=== PATIENT | male | born 1995 | race Asian ===

== ENCOUNTER 2017-04-15 23:57 | Emergency (ER) | payer OTHER ==
[~2017-04-15] VITALS: Ht 170.2 cm; Wt 53.3 kg
[~2017-04-15 23:57] MED LIST: DOXY1TAB6 PO; [UNRECOGNIZED DRUG - REMARK] PO
[2017-04-16 00:12] VITALS: TEMP 36.8; Ht 170.2 cm; Wt 53.3 kg
--- NOTE | 2017-04-16 00:34 | EMERGENCY ROOM VISIT NOTE ---
History Report prepared by Raudel: Alexys Aaron Under the Supervision of: Dr. Maribel Paulino D.O. First contact with patient: 00:18 Chief Complaint: TESTICULAR PAIN Stated Complaint: TESTICULAR PAIN History of Present Illness The patient is a 21 year old male who presents to the Emergency Room with complaints of worsening right side testicular pain for the past 7 days. Patient states he has associated pain of leg cramping when his testicular pain acts up. Patient denies any painful urination, abdominal pain, urinary discharge, changes in bowel movements, leg cramping/swelling, or herniating pain. Patient denies any unprotected sex. Pertinent past medical history of epididymitis. Patient adds that he has a history of left testicular pain. Patient states he has previously taken doxycycline for his testicular pain. Source of History: patient Onset: 7 days ago Position: other (Right testicle) Timing: worsening Associated Symptoms: No urinary symptoms Note: Patient has leg cramping. Patient denies urinary discharge or change in bowel movements. Review of Systems See HPI for pertinent positives & negatives. A total of 10 systems reviewed and were otherwise negative. Past Medical & Surgical Medical Problems: (1) Epididymitis (2) No pertinent past medical history Family History Patient reports no known family medical history. Social History Smoking Status: Current Every Day Smoker Drug Use: none Occupation Status: [employer] student Current/Historical Medications No Active Prescriptions or Reported Meds Allergies Coded Allergies: No Known Allergies (Unverified , 04/16/17) Physical Exam Vital Signs Date Time Temp Pulse Resp B/P (MAP) Pulse Ox O2 Delivery O2 Flow Rate FiO2 04/16/17 03:45 63 15 100/75 98 04/16/17 01:45 63 15 110/63 97 Room Air 04/16/17 00:12 36.8 98 16 137/91 95 Room Air Physical Exam Heart: Regular rate and rhythm. There is a normal S1 and S2 with no murmurs, clicks, or gallops appreciated. Lungs: Clear to auscultation bilaterally with no wheezes, rales, or rhonchi. Abdomen: Soft, completely nontender, nondistended, with good bowel sounds. There are no palpable pulsatile masses or hepatosplenomegaly. There is no guarding, rigidity, or rebound noted. Genitalia: tenderness to right testicle and there is a positive cremasteric reflex on the right Extremities: No evidence of cyanosis, clubbing, or edema. There are easily palpable peripheral pulses. Skin: warm and dry with good turgor and no rashes. Medical Decision & Procedures ER Provider Diagnostic Interpretation: Radiology results as stated below per my review and the radiologist's interpretation: US Scrotal Complex, hypoechoic in vascular 2.3cm mass lesion in the right testicle. Must consider neoplasm. No intratesticular torsion. Bilateral microlithiasis. Right epididymal cyst. Radiologist: Windy Cason M.D. Portable Chest X-Ray Unremarkable Laboratory Results Test 04/16/17 00:40 Urine Color YELLOW Urine Appearance CLEAR (CLEAR) Urine pH 7.0 (4.5-7.5) Urine Specific Moore 1.007 (1.000-1.030) Urine Protein NEG (NEG) Urine Glucose (UA) NEG (NEG) Urine Ketones NEG (NEG) Urine Occult Blood NEG (NEG) Urine Nitrite NEG (NEG) Urine Bilirubin NEG (NEG) Urine Urobilinogen NEG (NEG) Urine Leukocyte Esterase NEG (NEG) Laboratory results per my review. Medications Administered Medications (Trade) Dose Ordered Sig/Marisel Route Start Time Stop Time Status Last Admin Dose Admin Ketorolac Tromethamine (Toradol Inj) 60 mg NOW STAT IM 04/16/17 00:35 04/16/17 00:37 DC 04/16/17 01:01 60 MG Procedure Toradol Inj 60mg IM ED Course 0025: The patient was evaluated in room B7. A complete history and physical examination were performed. Nursing notes and previous electronic medical records were reviewed. He urine specimen was obtained. 0035: Toradol Inj 60mg IM. The patient will go for ultrasound 0300: I reassessed the patient and updated him on his findings. The patient will have a chest x-ray. 0341: Upon reevaluation, the patient is resting comfortably. I discussed findings and results with him. He verbalized agreement of the treatment plan. He was discharged home. Medical Decision The patient is a 21 year old male who presents to the ED with worsening right testicular pain. Differential diagnosis includes Orchitis, epididymitis, and testicular torsion. The patient has had worsening right testicular pain over the past 1 week. He has had a previous episode of epididymitis in the left testicle. Ultrasound shows a mass of the right testicle which is hypervascular. I reviewed these results with the patient. We did a chest x-ray to rule out metastatic disease. This was negative. I discussed the case with Dr. Salazar from urology and he will see the patient in the office. Medication Reconcilliation Current Medication List: was personally reviewed by me Blood Pressure Screening Patient's blood pressure: Normal blood pressure Blood pressure disposition: Did not require urgent referral Consults Time Called: 8:00 Consulting Physician: Jorge Salazar Returned Call: 8:04 Impression Primary Impression: Mass of right testicle Scribe Attestation The scribe's documentation has been prepared under my direction and personally reviewed by me in its entirety. I confirm that the note above accurately reflects all work, treatment, procedures, and medical decision making performed by me. Departure Information Dispostion Home / Self-Care Prescriptions No Active Prescriptions or Reported Meds Referrals No Doctor, Assigned (PCP) Forms HOME CARE DOCUMENTATION FORM, IMPORTANT VISIT INFORMATION, WORK / SCHOOL INSTRUCTIONS Patient Instructions My [facility] Additional Instructions Rest. tylenol or motrin for pain Follow up on Tuesday with Urology - Dr. Salazar
[2017-04-16] MEDS ORDERED: KETOROLAC TROMETHAMINE 60 MG/2 ML VIAL IM STA (00:35)
[2017-04-16 03:45] VITALS: BP 100/75; PULSE 63; O2SAT 98
--- NOTE | 2017-04-16 08:19 | DIAGNOSTIC IMAGING REPORT ---
ULTRASOUND TESTES AND SCROTUM CLINICAL HISTORY: Right testicular pain. COMPARISON STUDY: Scrotal ultrasound dated 05/11/2015. TECHNIQUE: Real-time, grayscale, and color Doppler sonography of the testes and scrotum is performed. Images are reviewed in the transverse and longitudinal planes. FINDINGS: The testes are normal in size and homogeneous in echotexture. The right testis measures 3.2 x 1.9 x 2.5 cm and the left testis measures 4.4 x 2.0 x 2.5 cm. Small microliths are identified in the right testis. There is a lobulated hypoechoic mass lesion identified in the right testis. This measures 2.3 x 1.6 x 2.1 cm and shows internal flow on color imaging. Testicular blood flow is normal and symmetric. Normal Doppler waveforms are identified in both testes. The epididymal heads are normal in appearance. The right epididymal head measures 0.9 cm in length and the left epididymal head measures 1.0 cm in length. There is a 4 mm epididymal head cyst seen on the right. No varicocele or hydrocele is seen. IMPRESSION: 1. There is a 2.3 cm hypoechoic vascular mass lesion identified in the right testis. This should be considered neoplasm until proven otherwise. Follow-up with urology is recommended. 2. No acute sonographic abnormality is identified in the scrotum. 3. The left testis is normal in appearance. Electronically signed by: Carl Lomas M.D. 04/16/2017 8:18 AM Dictated Date/Time: 04/16/2017 8:15 AM
--- NOTE | 2017-04-16 08:41 | DIAGNOSTIC IMAGING REPORT ---
SINGLE VIEW CHEST CLINICAL HISTORY: Testicular mass. FINDINGS: An AP, portable, upright chest radiograph is obtained. No prior studies are available for comparison at the time of dictation. The cardiomediastinal silhouette is unremarkable. There is no radiographic evidence of pulmonary nodule. The lungs and pleural spaces are clear. No pneumothorax is seen. The bony thorax is grossly intact. IMPRESSION: No active disease in the chest. Electronically signed by: Carl Lomas M.D. 04/16/2017 8:39 AM Dictated Date/Time: 04/16/2017 8:39 AM
[2017-04-19] MEDS ORDERED: OXYC7.5T65 PO (17:04)
== END 2017-04-16 03:45 | disposition home or self-care (01) ==
LOC: C.EDB 23:58
DX: D40.11 Neoplasm of uncertain behavior of right testis (principal); Z87.438 Personal history of other diseases of male genital organs; F17.200 Nicotine dependence, unspecified, uncomplicated

== ENCOUNTER → 2017-04-18 | Outpatient (CLI) | payer OTHER ==
[~2017-04-18] MED LIST changes: +OXYC7.5T65 PO
[2017-04-18 18:28] LABS: BASO % 0.2 %; BASO ABS # 0.01 K/uL (0-0.2); EOS % 1.2 %; EOS ABS # 0.07 K/uL (0-0.5); HEMATOCRIT 42.8 % (42-52); HEMOGLOBIN 15.5 g/dL (14.0-18.0); IG# 0.01 K/uL (0.00-0.02); LYMPH % 24.7 %; LYMPH ABS # 1.46 K/uL (1.2-3.4); MEAN CELL VOLUME 85.1 fL (80-100); MEAN CORPUSCULAR HEMOGLOBIN 30.8 pg (25-34); MEAN CORPUSCULAR HGB CONC 36.2 g/dl (32-36); MONO % 5.4 %; MONO ABS # 0.32 K/uL (0.11-0.59); NEUT % 68.3 %; NEUT ABS # 4.03 K/uL (1.4-6.5); PLATELET COUNT 170 K/uL (130-400); RED CELL DISTRIBUTION WIDTH CV 11.9 % (11.5-14.5); RED CELL DISTRIBUTION WIDTH SD 36.4 fL (36.4-46.3)
[2017-04-18 19:11] LABS: ALKALINE PHOSPHATASE 102 U/L (45-117); ALT/SGPT 30 U/L (12-78); AST/SGOT 18 U/L (15-37); BLOOD UREA NITROGEN 20 mg/dl (7-18); CALCIUM 9.1 mg/dl (8.5-10.1); CARBON DIOXIDE 33 mmol/L (21-32); CREATININE 1.04 mg/dl (0.60-1.40); GLUCOSE 103 mg/dl (70-99); POTASSIUM 3.9 mmol/L (3.5-5.1); SODIUM 137 mmol/L (136-145); TOTAL PROTEIN 7.8 gm/dl (6.4-8.2)
== END | disposition home or self-care (01) ==
LOC: C.LAB 18:08
PROVIDERS: ATTEND Urology
DX: N50.9 Disorder of male genital organs, unspecified (principal)

== ENCOUNTER 2017-04-19 12:48 | Day surgery (SDC) | payer OTHER ==
[~2017-04-19] VITALS: Ht 172.7 cm; Wt 51.8 kg
[~2017-04-19 12:48] MED LIST changes: +CEFAZOLIN 2000MG IV PUSH 10 ML IV SCH; -DOXY1TAB6 PO; -OXYC7.5T65 PO; +PATIENT'S HEIGHT AND/OR WEIGHT NEEDED SCH; -[UNRECOGNIZED DRUG - REMARK] PO
[2017-04-19 13:10] VITALS: BP 117/72; PULSE 70; TEMP 36.8; O2SAT 99; Ht 172.7 cm; Wt 51.8 kg
[2017-04-19] MEDS ORDERED: MIDAZOLAM HCL 1 MG/ML 2ML VIAL ONE (14:17)
[2017-04-19] MEDS ORDERED: PROPOFOL IV EMULSION 10 MG/ML 20 ML VIAL IV ONE (14:17)
[2017-04-19] MEDS ORDERED: FENTANYL CITRATE INJ 50 MCG/1 ML 2 ML VIAL ONE ×2 (14:17)
[2017-04-19] MEDS ORDERED: ONDANSETRON INJ 2 MG/ML 2 ML VIAL ONE (14:17)
[2017-04-19] MEDS ORDERED: LIDOCAINE HCL 2% 2 ML VIAL (20MG/ML) ONE (14:17)
--- NOTE | 2017-04-19 15:07 | History & Physical Bridge Note ---
H&P Re-Evaluation Bridge Note: I have examined the patient, reviewed the History & Physical and in the interval since the performance of the History & Physical I have noted the following changes of clinical significance: No changes noted
--- NOTE | 2017-04-19 17:00 | Discharge Instructions ---
Discharge Instructions Date of Service Apr 19, 2017. Admission Reason for Admission: Scrotal Mass Discharge Discharge Diagnosis / Problem: Right Testicular Mass Discharge Goals Goal(s): Decrease discomfort, Improve function Activity Recommendations Activity Limitations: resume your previous activity Lifting Limitations: no more than 10 pounds, gradually increase as tolerated Exercise/Sports Limitations: gradually increase as tolerated May Resume Sexual Activity: after follow-up appointment Shower/Bathe: tomorrow . Instructions / Follow-Up Instructions / Follow-Up Scrotal support as need. Okay to shower tomorrow. Okay to wash 2-3 x daily with warm soapy water. Glue and absorbable sutures in place. Pain medications as needed. Monitor for fevers or chills or other issues. Current Hospital Diet Patient's current hospital diet: Discharge Diet Recommended Diet: Regular Diet Procedures Procedures Performed: Right Orchiectomy, Radical Pending Studies Studies pending at discharge: no Medical Emergencies . Who to Call and When: Medical Emergencies: If at any time you feel your situation is an emergency, please call 911 immediately. . Non-Emergent Contact Non-Emergency issues call your: Primary Care Provider, Urologist . . "Provider Documentation" section prepared by Dudley Galeano,. . VTE Core Measure Inpt VTE Proph given/why not?: SCD's
[2017-04-19] MEDS ORDERED: BUPIVACAINE 0.5 % 5 MG/1 ML MPF 30ML VIAL ONE (17:01)
[2017-04-19] MEDS ORDERED: OXYC7.5T65 PO (17:04)
[2017-04-19] MEDS ORDERED: OXYCODONE/ACETAMINOPHEN 7.5-325 TAB PO PRN (17:15)
[2017-04-19] MEDS ORDERED: EpHEDrine SULFATE 50MG/5ML SYR ONE (17:50)
[2017-04-19] MEDS ORDERED: KETOROLAC TROMETHAMINE 30 MG/ML VIAL ONE (17:50)
[2017-04-19] MEDS ORDERED: DEXAMETHASONE SOD INJ 4 MG/ML VIAL ONE (17:50)
[2017-04-19] MEDS ORDERED: FENTANYL CITRATE INJ 50 MCG/1 ML 2 ML VIAL IV PRN (18:15)
[2017-04-19] MEDS ORDERED: ATROPINE SULFATE 0.1 MG/ML 5ML SYR IV PRN (18:15)
[2017-04-19] MEDS ORDERED: EpHEDrine SULFATE INJ 50 MG/ML AMP IV PRN (18:15)
[2017-04-19] MEDS ORDERED: ONDANSETRON INJ 2 MG/ML 2 ML VIAL IV PRN (18:15)
[2017-04-19] MEDS ORDERED: HYDROmorphone INJ 1 MG/ML SYR IV PRN (18:15)
--- NOTE | 2017-04-19 18:17 | [facility] Post Operative Brief Note ---
Immediate Operative Summary Operative Date Apr 19, 2017. Pre-Operative Diagnosis Right Testicular Mass Post-Operative Diagnosis Same Procedure(s) Performed Right Orchiectomy, Radical Surgeon Froylan Electro Mechanic Surgeon(s) None Estimated Blood Loss Minimal Findings Consistent with Post-Op Diagnosis Specimens Right Radical Testicle and cord Drains None Anesthesia Type General Complication(s) none Disposition Accompanied Pt To Recover: no Disposition: Recovery Room / PACU
[2017-04-19 19:05] VITALS: BP 132/75; PULSE 80; TEMP 36.3; O2SAT 100
--- NOTE | 2017-04-19 19:26 | Anesthesiology Progress Note ---
Anesthesia Post Op Note Date & Time Apr 19, 2017 at 19:25 Vital Signs Pain Intensity: 0 Vital Signs Past 12 Hours Date Time Temp Pulse Resp B/P (MAP) Pulse Ox O2 Delivery O2 Flow Rate FiO2 04/19/17 18:55 36.3 57 14 118/73 100 04/19/17 18:45 52 14 93/54 99 Oxymask 3 04/19/17 18:35 50 12 88/55 99 Oxymask 5 04/19/17 18:26 36.2 51 12 92/52 99 Oxymask 5 04/19/17 13:10 36.8 70 18 117/72 (87) 99 Room Air Notes Mental Status: alert / awake / arousable, participated in evaluation Pt Amnestic to Procedure: Yes Nausea / Vomiting: adequately controlled Pain: adequately controlled Airway Patency, RR, SpO2: stable & adequate BP & HR: stable & adequate Hydration State: stable & adequate Anesthetic Complications: no major complications apparent
--- NOTE | 2017-04-19 20:37 | [facility] Operative Report ---
Operative Report Operative Date Apr 19, 2017. Pre-Operative Diagnosis Right Testicular Mass Post-Operative Diagnosis Same Procedure(s) Performed Right Inguinal Radical Orchiectomy Surgeon Galeano Estimated Blood Loss Minimal Findings Testicular mass on right approx 2 cm. Solid on posterior testicle. Specimens 1. Radical Right Testicle and spermatic cord Anesthesia General Complication(s) None Disposition Recovery Room / PACU Indications Right testicular mass suspicious for malignancy. Description of Procedure Patient was consented and brought back to the operating room. Patient was placed under anesthesia in the supine position. Patient was prepped and draped in the regular sterile fashion. A time out was completed. The right inguinal region was examined and marked. Local anesthetic was injected below the skin. An inguinal incision was made approx 6 cm in length. Electrocautery was used to open the subcutaneous tissues. The inguinal canal was palpated. the fascia was opened and the cord isolated. A drain was used to isolate the cord further for dissection. Dissection of the cord was taken proximal. A high ligation was completed with a alfredo clamp and a 1-0 Silk suture. This was tied a second time. The cord was then clamped and cut. At this point, the testicle was delivered into the field and scrotal attachments freed. The specimen was handed off to be sent for pathologic analysis. The area was irrigated and the all bleeding controlled. The fascia was closed with a running vicryl suture. Subcutaneous tissues were closed with running suture and a monocyrl running 4-0 suture was used to close the skin. The patient was cleaned, aroused from anesthesia, and transferred to the pacu in stable condition having tolerated the procedure well with no complications. I was present and participated in all aspects of the procedure. I attest to the content of the Intraoperative Record and any orders documented therein. Any exceptions are noted below.
== END 2017-04-19 19:48 | disposition home or self-care (01) ==
LOC: C.ACU 12:48
PROVIDERS: ATTEND Urology
DX: N50.9 Disorder of male genital organs, unspecified (principal); F17.200 Nicotine dependence, unspecified, uncomplicated

== ENCOUNTER → 2017-04-25 | Outpatient (CLI) | payer OTHER ==
[~2017-04-25] MED LIST changes: -CEFAZOLIN 2000MG IV PUSH 10 ML IV SCH; +OPTIRAY 320 IV PRN; +OXYC7.5T65 PO; -PATIENT'S HEIGHT AND/OR WEIGHT NEEDED SCH
--- NOTE | 2017-04-25 11:09 | DIAGNOSTIC IMAGING REPORT ---
CT SCAN OF THE ABDOMEN AND PELVIS WITH IV CONTRAST CLINICAL HISTORY: Right testicular mass. COMPARISON STUDY: No priors. TECHNIQUE: Following the IV administration of 94 cc of Optiray 320, CT scan of the abdomen and pelvis is performed from the lung bases to the proximal femora. Images are reviewed in the axial, sagittal, and coronal planes. IV contrast was administered without complication. A dose lowering technique was utilized adhering to the principles of ALARA. CT DOSE: 226.55 mGy.cm FINDINGS: Lung bases: The heart is normal in size and without pericardial effusion. Fat-containing Bochdalek hernias are present at both lung bases. The lung bases are otherwise clear. Liver: The contrast-enhanced liver is normal in size, contour, and attenuation. There is no intrahepatic biliary ductal dilatation. The hepatic veins and portal veins are patent. There is a 1.6 cm low-attenuation lesion in the left hepatic lobe. This demonstrates foci of peripheral discontinuous nodular enhancement and almost certainly represents a hemangioma. Gallbladder: Unremarkable. Spleen: Normal in size and attenuation. Pancreas: Unremarkable. Adrenal glands: Unremarkable. Kidneys: The contrast enhanced kidneys are normal in size and without hydronephrosis. The kidneys enhance symmetrically. Abdominal vasculature: The abdominal aorta is normal in course and caliber. 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 Bowel: The small bowel and colon are normal in course and caliber. The appendix is well-visualized and normal. Peritoneum: There is no intraperitoneal free air or abdominal ascites. There is a small fat-containing umbilical hernia. Lymphadenopathy: None. Pelvic viscera: The bladder, prostate, and seminal vesicles are normal as imaged. Findings suggest right-sided orchiectomy. Skeletal structures: No lytic or blastic lesions are seen. IMPRESSION: 1. There is no evidence of metastatic disease in the abdomen or pelvis. 2. A 1.6 cm incompletely characterized low-attenuation lesion is identified in the left hepatic lobe. This demonstrates foci of peripheral discontinuous nodular enhancement and almost certainly represents a benign hemangioma. MRI of the liver could be considered if definitive characterization is required. Electronically signed by: Carl Lomas M.D. 04/25/2017 11:08 AM Dictated Date/Time: 04/25/2017 11:03 AM
== END | disposition home or self-care (01) ==
LOC: C.CTS 10:43
PROVIDERS: ATTEND Urology
DX: K76.9 Liver disease, unspecified (principal); N50.9 Disorder of male genital organs, unspecified

== ENCOUNTER → 2017-11-14 | Outpatient (CLI) | payer OTHER ==
[~2017-11-14] MED LIST changes: -OXYC7.5T65 PO; +PRED20TA PO
[2017-11-14 17:10] LABS: BASO % 0.2 %; BASO ABS # 0.01 K/uL (0-0.2); EOS % 1.2 %; EOS ABS # 0.05 K/uL (0-0.5); HEMATOCRIT 44.3 % (42-52); IG# 0.01 K/uL (0.00-0.02); LYMPH % 36.4 %; LYMPH ABS # 1.56 K/uL (1.2-3.4); MEAN CELL VOLUME 85.2 fL (80-100); MEAN CORPUSCULAR HEMOGLOBIN 30.8 pg (25-34); MEAN CORPUSCULAR HGB CONC 36.1 g/dl (32-36); MEAN PLATELET VOLUME 10.9 fL (7.4-10.4); MONO % 6.5 %; MONO ABS # 0.28 K/uL (0.11-0.59); NEUT % 55.5 %; NEUT ABS # 2.37 K/uL (1.4-6.5); PLATELET COUNT 170 K/uL (130-400); RED CELL DISTRIBUTION WIDTH SD 37.1 fL (36.4-46.3); WHITE BLOOD COUNT 4.28 K/uL (4.8-10.8)
--- NOTE | 2017-11-14 17:26 | DIAGNOSTIC IMAGING REPORT ---
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 TECHNIQUE: Multidetector CT of the abdomen and pelvis was performed after the administration of intravenous contrast. IV contrast: 115 mL of Optiray 320. A dose lowering technique was used consistent with the principles of ALARA (as low as reasonably achievable). COMPARISON: None. CT DOSE (mGy.cm): The estimated cumulative dose is 226.39 mGy.cm. FINDINGS: Boom Supervisor topogram: Unremarkable. Lung bases: Lungs and pleural spaces clear. Normal heart size. No pericardial or pleural effusion. Liver: Normal morphology. Unchanged 1.5 cm multilobular hypodense lesion in the left hepatic lobe (series 3 image 39), indeterminate and possibly benign hemangioma. Patent hepatic vasculature. Biliary: No intrahepatic or extrahepatic biliary ductal dilatation. Normal gallbladder. Pancreas: Normal. Spleen: Normal. Adrenal glands: Normal. Kidneys and ureters: Normal. No hydronephrosis. Bladder: Normal. Pelvic organs: Prostate and seminal vesicles normal. Bowel: Normal appendix. No bowel obstruction. Peritoneal cavity: No free fluid or intraperitoneal gas. Lymph nodes: No enlarged lymph nodes in the abdomen or pelvis. Vasculature: Aorta and IVC patent and normal in caliber. 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 Abdominal wall: Postsurgical changes in the right inguinal region. Musculoskeletal: Normal. IMPRESSION: 1. No evidence of metastatic disease in the abdomen or pelvis. No lymphadenopathy. 2. Stable postsurgical changes in the right inguinal region. 3. Stable 1.5 cm left hepatic lobe lesion, suspected benign hemangioma. Electronically signed by: Ron Bach M.D. 11/14/2017 5:25 PM Dictated Date/Time: 11/14/2017 5:15 PM
[2017-11-14 18:44] LABS: AST/SGOT 16 U/L (15-37); POTASSIUM 3.9 mmol/L (3.5-5.1); SODIUM 137 mmol/L (136-145)
[2017-11-14 19:09] LABS: ALBUMIN 4.2 gm/dl (3.4-5.0); ALKALINE PHOSPHATASE 116 U/L (45-117); ALT/SGPT 28 U/L (12-78); BLOOD UREA NITROGEN 13 mg/dl (7-18); CALCIUM 9.1 mg/dl (8.5-10.1); CARBON DIOXIDE 28 mmol/L (21-32); GLUCOSE 88 mg/dl (70-99); TOTAL PROTEIN 8.3 gm/dl (6.4-8.2)
== END | disposition home or self-care (01) ==
LOC: C.CTS 16:33
PROVIDERS: ATTEND Urology
DX: C62.90 Malignant neoplasm of unspecified testis, unspecified whether descended or undescended (principal); K76.9 Liver disease, unspecified